=== PATIENT | female | born 1970 | race Two or more races ===

== ENCOUNTER 2016-11-09 00:37 | Emergency (ER) | payer OTHER ==
[~2016-11-09] VITALS: Ht 149.9 cm; Wt 54.4 kg
[2016-11-09 01:48] VITALS: BP 114/76
== END 2016-11-09 01:49 | disposition home or self-care (01) ==
LOC: ER 00:38
DX: F41.9 Anxiety disorder, unspecified (principal); F32.9 Major depressive disorder, single episode, unspecified; Z88.2 Allergy status to sulfonamides; G47.00 Insomnia, unspecified
CPT/HCPCS: A4606; Z7610

== ENCOUNTER → 2017-11-09 | Emergency (ER) | payer MEDICAID, OTHER ==
[~2017-11-09] VITALS: Ht 162.6 cm; Wt 80.3 kg
[~2017-11-09] MED LIST: IBUPROFEN 600 MG TABLET PO ONE
[2017-11-09 19:00] VITALS: BP 132/88
== END | disposition home or self-care (01) ==
LOC: ER 18:54
DX: M25.571 Pain in right ankle and joints of right foot (principal); F41.9 Anxiety disorder, unspecified; F32.9 Major depressive disorder, single episode, unspecified; Z88.2 Allergy status to sulfonamides
CPT/HCPCS: 73610-TC; A4606; Z7610

== ENCOUNTER 2019-09-29 09:23 | Emergency (ER) | payer MEDICAID ==
[~2019-09-29] VITALS: Ht 149.9 cm; Wt 87.1 kg
--- NOTE | 2019-09-29 09:35 | NUR ---
CAME IN FOR WORSENING R SHOULDER AND LOWER BACK PAIN X 1 MONTH, [employer]. TO ER BED 12, HOOKED TO MONITOR, CHANGED TO HOSP GOWN, PROVIDED W WARM BLANKET, PATIENT AOx4 , BREATHING EVEN AND UNLABORED, AWAITING MD GUERRIER.
--- NOTE | 2019-09-29 09:42 | NUR ---
DR MEJIA AT BEDSIDE
--- NOTE | 2019-09-29 09:48 | NUR ---
DR MEJIA AT BEDSIDE
[2019-09-29 10:49] VITALS: BP 128/96
--- NOTE | 2019-09-29 11:40 | NUR ---
Patient discharged to home in stable condition. Written and verbal after care instructions given. Patient verbalizes understanding of instruction.
== END 2019-09-29 11:41 | disposition home or self-care (01) ==
LOC: ER 09:24
DX: S39.012A Strain of muscle, fascia and tendon of lower back, initial encounter (principal); M25.511 Pain in right shoulder; F41.9 Anxiety disorder, unspecified; F32.9 Major depressive disorder, single episode, unspecified; Z98.890 Other specified postprocedural states; Z88.2 Allergy status to sulfonamides; X58.XXXA Exposure to other specified factors, initial encounter; Y93.89 Activity, other specified; Y92.89 Other specified places as the place of occurrence of the external cause; Y99.8 Other external cause status
CPT/HCPCS: 72100-TC; 73030-TC

== ENCOUNTER 2021-09-25 12:35 | Emergency (ER) | payer MEDICAID ==
[~2021-09-25] VITALS: Ht 149.9 cm; Wt 74.8 kg
[2021-09-25 13:05] VITALS: BP 142/91
--- NOTE | 2021-09-25 13:05 | NUR ---
PT C/O L wrist pain x 5 months, R knee and back of the knee pain x 1 month, from exercising ( jumping ropes). A/OX4. TOLERATING R/A WELL WITH NO SOB.
[2021-09-25] MEDS ORDERED: IBUP-1955 PO (14:35)
--- NOTE | 2021-09-25 14:40 | NUR ---
L VELCRO SPLINT APPLIED AND KIMBERLY WRAP ON THE R KNEE.
--- NOTE | 2021-09-25 14:51 | NUR ---
Patient discharged to home in stable condition. Written and verbal after care instructions given. Patient verbalizes understanding of instruction.
== END 2021-09-25 14:52 | disposition home or self-care (01) ==
LOC: ER 12:37
DX: S63.592A Other specified sprain of left wrist, initial encounter (principal); S76.811A Strain of other specified muscles, fascia and tendons at thigh level, right thigh, initial encounter; F41.9 Anxiety disorder, unspecified; F32.9 Major depressive disorder, single episode, unspecified; Z98.890 Other specified postprocedural states; Z88.2 Allergy status to sulfonamides; W22.8XXA Striking against or struck by other objects, initial encounter; Y93.89 Activity, other specified; Y92.89 Other specified places as the place of occurrence of the external cause; Y99.8 Other external cause status
CPT/HCPCS: 73110